=== PATIENT | female | born 1995 | race Caucasian/White ===

== ENCOUNTER 2021-11-16 15:32 | Emergency (ER) | payer OTHER, SELFPAY ==
--- NOTE | ~2021-11-16 | CT_ITS ---
EXAMINATION: CT abdomen pelvis wo con DATE: 11/16/2021 18:37 INDICATION: Right flank pain radiating to right lower quadrant. Nausea. TECHNIQUE: Computed tomography (CT) of the abdomen and pelvis was performed without intravenous contr ast. Automated exposure control and iterative reconstruction technique were employed. Exam dose: 587 .97 mGy-cm total exam DLP. COMPARISON: None. FINDINGS: The lung bases are clear. Normal heart size. No pericardial or pleural effusion. The liver, gallbladder, bile ducts, spleen, pancreas, pancreatic duct and adrenal glands are unremark able. There is an approximately 2.5 mm proximal right ureteral calculus with minimal right hydronephrosis. No other urinary tract calculus. The uterus, adnexal areas and urinary bladder are unremarkable. Normal appendix. There is diverticulosis of left colon; no evidence of diverticulitis. No bowel obstruction, bowel wal l thickening, pneumatosis or intraperitoneal free air. Normal caliber of the abdominal aorta. No intraperitoneal or retroperitoneal or pelvic mass lesion or adenopathy or ascites. Included skeletal structures are unremarkable. IMPRESSION: 2.5 mm proximal right ureteral calculus with minimal right hydroureteronephrosis Diverticulosis of left colon; no evidence of diverticulitis Reviewed, dictated and finalized at [facility]. Reviewed, dictated and finalized at [facility]. IMPRESSION: 2.5 mm proximal right ureteral calculus with minimal right hydrour eteronephrosis Diverticulosis of left colon; no evidence of diverticulitis
[2021-11-16 15:39] VITALS: BP 128/81; PULSE 104; RESP 18; TEMP 36.4; O2SAT 100
[2021-11-16 16:22] LABS: Add Urine Microscopic? YES; Appearance Urine Cloudy (Clear); Basophils Percent Auto 0.4 % (0.2-1.2); Bilirubin Urine 1+ (Negative); Blood Urine 3+ (Negative); Color Urine Brown (Yellow); Eosinophils Absolute Auto 0.2 K/mm3 (0-0.3); Eosinophils Percent Auto 2.2 % (0-4.4); Glucose Urine UA Negative (Negative); Hematocrit 39.9 % (37.0-47.0); Hemoglobin 13.5 g/dL (12.0-15.0); Immature Granulocyte Absolute 0.04 K/mm3 (0.00-0.031); Immature Granulocyte Percent A 0.4 % (0-0.5); Ketones Urine Trace mg/dL (Negative); Leukocyte Esterase Ur Trace LEU/UL (Negative); Lymphocytes Absolute Auto 3.05 K/mm3 (0.9-3.2); Lymphocytes Percent Auto 31.1 % (18.3-44.2); Mean Corpuscular HGB Conc 33.8 g/dl (32-36); Mean Corpuscular Hemoglobin 30.3 pg (26-34); Mean Corpuscular Volume 89.7 fl (80-100); Mean Platelet Volume 9.7 fl (7.4-10.4); Monocytes Absolute Auto 0.7 K/mm3 (0.1-0.6); Monocytes Percent Auto 7.1 % (2.6-8.5); Neutrophils Absolute Auto 5.8 K/mm3 (1.3-6.7); Neutrophils Percent Auto 58.8 % (45.5-73.1); Nitrate Urine Negative (Negative); Platelet Count Result 398 k/mm3 (150-375); Protein Urine 2+ mg/dL (Negative); Red Blood Count 4.45 M/mm3 (4.2-5.4); Red Cell Distribution Width 12.9 % (11.5-14.5); Specific Grav Ur 1.025 (1.001-1.035); Urobilinogen Urine 0.2 mg/dL (<2.0); White Blood Count 9.8 K/mm3 (4.5-10.0); pH Urine 6.5 (5.0-9.0)
[2021-11-16 16:26] LABS: Mucus Urine Rare /lpf; RBC Urine >75 /hpf (0-2); Squamous Epithelial Cell Urine Few /hpf (Few); WBC Urine 0-3 /hpf
[2021-11-16 16:38] LABS: Alanine Aminotransferase 17 U/L (6-35); Albumin Level 4.9 g/dL (3.5-5.1); Alkaline Phosphatase 73 U/L (38-126); Anion Gap 8 mmol/L (8-16); Aspartate Amino Transferase 25 U/L (14-36); Bilirubin,Total 0.3 mg/dL (0.2-1.3); Blood Urea Nitrogen 13 mg/dL (7-17); Calcium 9.3 mg/dL (8.4-10.2); Carbon Dioxide 28 mmol/L (22-30); Chloride 105 mmol/L (98-107); Estimated CRCL calculation 109 ml/min; Estimated Glomerular Filt Rate > 60; Glucose 90 mg/dL (65-110); Lipase 133 U/L (23-300); Potassium 4.3 mmol/L (3.4-5.0); Sodium 141 mmol/L (137-145)
[2021-11-16 18:14] VITALS: BP 126/92; PULSE 75; RESP 14; O2SAT 100
--- NOTE | 2021-11-16 18:27 | ED.ABDPAIN ---
HPI - Abdominal Pain General Chief Complaint: Abdominal Pain Stated Complaint: R lower back pain to abd Time Seen by Provider: 11/16/21 18:05 History of Present Illness HPI narrative: Pt presents with right flank pain onset about 1430 today. Pt described as sharp and radiating around to front of abdoment. Pt says constant but waxes and wanes in severity. Pt a little nauseated but not vomiting. Pt noticed urine was dark. Related Data Allergies Allergy/AdvReac Type Severity Reaction Status Date / Time No Known Allergies Allergy Verified 11/16/21 18:59 Review of Systems Review of Systems: All systems reviewed & are unremarkable except as noted in HPI and below PMFSH Family History Family History (Updated 01/06/16 @ 23:21 by DOCTOR UNKNOWN) Mother Hypertension Patient's mother is in good health Father Patient's father is in good health Sibling Patient's sister is in good health Patient's brother is in good health Family history of development disorder Grandparent Family history of alcoholism Family history of lung cancer Other Family history of migraine headaches Exam Const: General: healthy appearing Nutritional Appearance: well nourished Orientation/consciousness: patient oriented x3 Limitations: no limitations Resp: Effort & Inspection: normal respiratory effort Auscultation: clear to auscultation bilaterally Cardio: Rate: regular rate Rhythm: regular rhythm Heart sounds: Murmur heart sound present GI: GI Palp: Yes Soft to palpation Auscultation: normal bowel sounds : General: Yes CVA tenderness (right) Back/Spine/Pelvis: Back: CVA tenderness Skin: General skin exam: normal color Rashes: no rashes Neuro: General: patient oriented x3, moves all extremities and no focal motor deficits Extrem: General: normal to inspection and no clubbing, cyanosis or edema Psych: Mental Status: mental status grossly normal Affect: normal affect Attitude: cooperative Course Vital Signs Vital signs: Vital Signs Temperature 97.6 F 11/16/21 15:39 Pulse Rate 104 H 11/16/21 15:39 Respiratory Rate 18 11/16/21 15:39 Blood Pressure 128/81 11/16/21 15:39 Pulse Oximetry 100 11/16/21 15:39 Oxygen Delivery Room Air 11/16/21 15:39 Temperature 97.6 F 11/16/21 15:39 Pulse Rate 90 11/16/21 19:39 Respiratory Rate 18 11/16/21 19:39 Blood Pressure 137/100 H 11/16/21 19:39 Pulse Oximetry 100 11/16/21 19:39 Oxygen Delivery Room Air 11/16/21 15:39 MDM - Abdominal Pain Lab Data Result diagrams: 11/16/21 16:13 11/16/21 16:14 Labs: Lab Results 11/16/21 11/16/21 11/16/21 Range/Units 16:13 16:13 16:14 WBC 9.8 (4.5-10.0) K/mm3 RBC 4.45 (4.2-5.4) M/mm3 Hgb 13.5 (12.0-15.0) g/dL Hct 39.9 (37.0-47.0) % MCV 89.7 (80-100) fl MCH 30.3 (26-34) pg MCHC 33.8 (32-36) g/dl RDW 12.9 (11.5-14.5) % Plt Count 398 H (150-375) k/mm3 MPV 9.7 (7.4-10.4) fl Immature Gran % (Auto) 0.4 (0-0.5) % Neut % (Auto) 58.8 (45.5-73.1) % Lymph % (Auto) 31.1 (18.3-44.2) % [place] % (Auto) 7.1 (2.6-8.5) % Eos % (Auto) 2.2 (0-4.4) % Baso % (Auto) 0.4 (0.2-1.2) % Lymph # (Auto) 3.05 (0.9-3.2) K/mm3 [place] # (Auto) 0.7 H (0.1-0.6) K/mm3 Eos # (Auto) 0.2 (0-0.3) K/mm3 Baso # (Auto) 0.0 (0.0-0.1) K/mm3 Abs Immat Gran (auto) 0.04 H (0.00-0.031) K/mm3 Absolute Neuts (auto) 5.8 (1.3-6.7) K/mm3 Absolute Nucleated RBC 0.0 (0.0-0.012) K/mm3 Nucleated RBC % 0.0 (0.0-0.2) % Sodium 141 (137-145) mmol/L Potassium 4.3 (3.4-5.0) mmol/L Chloride 105 (98-107) mmol/L Carbon Dioxide 28 (22-30) mmol/L Anion Gap 8 (8-16) mmol/L BUN 13 (7-17) mg/dL Creatinine 0.70 (0.7-1.0) mg/dL Estim Creat Clear Calc 109 ml/min Estimated GFR > 60 (59 - ) Glucose 90 (65-110) mg/dL Calcium 9.3 (8.4-10.2) mg/dL Total Bilirubin
[2021-11-16] MEDS: ONDANSETRON INJ 4 MG/2 ML VIAL IV PUSH (19:08)
[2021-11-16] MEDS: fentaNYL CITRATE INJ (*CRX) 100 MCG/2 ML VIAL 50 MCG IV PUSH (19:09)
[2021-11-16 19:10] VITALS: BP 134/101; PULSE 98; RESP 14; O2SAT 98
[2021-11-16 19:39] VITALS: BP 137/100; PULSE 90; RESP 18; O2SAT 100
== END 2021-11-16 19:34 | disposition home or self-care (01) ==
PROVIDERS: Emergency Medicine; Emergency Provider Emergency Medicine
DX: N20.1 Calculus of ureter (principal)
CPT/HCPCS: 36415; 74176; 80053; 81001; 81025; 83690; 85025; 99284; J2405; J3010

== ENCOUNTER 2021-12-04 07:03 | Emergency (ER) | payer OTHER, SELFPAY ==
--- NOTE | ~2021-12-04 | CT_ITS ---
EXAMINATION: CT abdomen pelvis wo con DATE: 12/04/2021 08:22 INDICATION: Right flank pain. History of kidney stone. TECHNIQUE: Computed tomography (CT) of the abdomen and pelvis was performed without intravenous contr ast. Automated exposure control and iterative reconstruction technique were employed. Exam dose: 483 .90 mGy-cm total exam DLP. COMPARISON: 11/16/2021 CT abdomen pelvis FINDINGS: The lung bases are clear of infiltrate or consolidation. Normal heart size. No pericardial or pleural effusion. The liver, gallbladder, bile ducts, spleen, pancreas, pancreatic duct, adrenal glands and left kidney are unremarkable. There is right nephromegaly and moderate right hydroureteronephrosis due to a very distal right urete ral 3 mm calculus. No other urinary tract calculus. Normal caliber of the abdominal aorta. No intraperitoneal or retroperitoneal or pelvic mass lesion or adenopathy or ascites. Normal appendix. There is diverticulosis of the left colon; no CT evidence of diverticulitis. No romi l obstruction or intraperitoneal free air. The urinary bladder, uterus and adnexal areas are unremarkable. Included skeletal structures are unremarkable. IMPRESSION: 3 mm obstructing distal right ureteral calculus with moderate right hydroureteronephrosi s, right nephromegaly Normal appendix Reviewed, dictated and finalized at [facility]. Reviewed, dictated and finalized at [facility]. IMPRESSION: 3 mm obstructing distal right ureteral calculus with moderate righ t hydroureteronephrosis, right nephromegaly Normal appendix
[2021-12-04 07:10] VITALS: BP 151/85; PULSE 108; RESP 20; TEMP 36.6; O2SAT 97
[2021-12-04 07:37] LABS: Appearance Urine Cloudy (Clear); Bilirubin Urine Negative (Negative); Blood Urine 1+ (Negative); Color Urine Yellow (Yellow); Glucose Urine UA Negative (Negative); Ketones Urine Trace mg/dL (Negative); Leukocyte Esterase Ur Negative LEU/UL (Negative); Nitrate Urine Negative (Negative); Protein Urine Negative (Negative); Specific Grav Ur >= 1.030 (1.001-1.035); Urobilinogen Urine 0.2 mg/dL (<2.0); pH Urine 5.5 (5.0-9.0)
[2021-12-04 07:44] LABS: Bacteria Urine Trace /hpf; Mucus Urine Rare /lpf; Squamous Epithelial Cell Urine Many /hpf (Few); WBC Urine 0-3 /hpf
[2021-12-04 07:44] LABS: Basophils Absolute Auto 0.1 K/mm3 (0.0-0.1); Basophils Percent Auto 0.3 % (0.2-1.2); Eosinophils Absolute Auto 0.1 K/mm3 (0-0.3); Eosinophils Percent Auto 0.8 % (0-4.4); Hematocrit 38.7 % (37.0-47.0); Hemoglobin 13.1 g/dL (12.0-15.0); Immature Granulocyte Absolute 0.08 K/mm3 (0.00-0.031); Immature Granulocyte Percent A 0.5 % (0-0.5); Lymphocytes Absolute Auto 1.96 K/mm3 (0.9-3.2); Lymphocytes Percent Auto 12.5 % (18.3-44.2); Mean Corpuscular HGB Conc 33.9 g/dl (32-36); Mean Corpuscular Hemoglobin 29.9 pg (26-34); Mean Corpuscular Volume 88.4 fl (80-100); Mean Platelet Volume 10.2 fl (7.4-10.4); Monocytes Absolute Auto 0.8 K/mm3 (0.1-0.6); Monocytes Percent Auto 5.1 % (2.6-8.5); Neutrophils Absolute Auto 12.6 K/mm3 (1.3-6.7); Neutrophils Percent Auto 80.8 % (45.5-73.1); Platelet Count Result 292 k/mm3 (150-375); Red Blood Count 4.38 M/mm3 (4.2-5.4); Red Cell Distribution Width 12.2 % (11.5-14.5); White Blood Count 15.6 K/mm3 (4.5-10.0)
[2021-12-04 07:46] LABS: Add Urine Microscopic? YES
[2021-12-04 07:52] LABS: Alanine Aminotransferase 15 U/L (6-35); Albumin Level 4.4 g/dL (3.5-5.1); Alkaline Phosphatase 73 U/L (38-126); Anion Gap 9 mmol/L (8-16); Aspartate Amino Transferase 23 U/L (14-36); Bilirubin,Total 0.6 mg/dL (0.2-1.3); Blood Urea Nitrogen 12 mg/dL (7-17); Calcium 8.8 mg/dL (8.4-10.2); Carbon Dioxide 26 mmol/L (22-30); Chloride 102 mmol/L (98-107); Estimated CRCL calculation 80 ml/min; Estimated Glomerular Filt Rate > 60; Glucose 103 mg/dL (65-110); Potassium 3.9 mmol/L (3.4-5.0); Sodium 137 mmol/L (137-145)
[2021-12-04] MEDS: MORPHINE SULFATE (*CRX) 4 MG/ML INJ IV PUSH (08:01)
[2021-12-04] MEDS: SODIUM CHLORIDE 0.9% IV 1,000 ML 999 ML IV CONT (08:02)
[2021-12-04] MEDS: ONDANSETRON INJ 4 MG/2 ML VIAL IV PUSH (08:02)
--- NOTE | 2021-12-04 08:12 | ED.GENADULT ---
HPI - General Adult General Chief complaint: Urogenital-Female Stated complaint: Right flank pain Time Seen by Provider: 12/04/21 07:06 History of Present Illness HPI narrative: Patient is a 25-year-old female who presents ER with right-sided flank pain. Ongoing for 2 days but worsened this morning. No improvement with [place]. No fevers or chills or sweats. Reports decreased urination. No dysuria. Has a known kidney stone but has never passed it. No aggravating factors. Pain is without radiation. Patient had kidney stone diagnosed earlier in the month. Related Data Allergies Allergy/AdvReac Type Severity Reaction Status Date / Time No Known Allergies Allergy Verified 12/04/21 07:12 Review of Systems Review of Systems: All systems reviewed & are unremarkable except as noted in HPI and below Constitutional: Constitutional: Denies fever(s) and Denies weakness Cardiovascular: Cardiovascular: Denies chest pain and Denies rapid heart rate Respiratory: Respiratory: Denies cough and Denies dyspnea Gastrointestinal: Gastrointestinal: Denies abdominal pain, Reports nausea and Denies vomiting Genitourinary: Genitourinary: Denies hematuria, Denies dysuria and Reports flank pain PMFSH Family History Family History (Updated 01/06/16 @ 23:21 by DOCTOR UNKNOWN) Mother Hypertension Patient's mother is in good health Father Patient's father is in good health Sibling Patient's sister is in good health Patient's brother is in good health Family history of development disorder Grandparent Family history of alcoholism Family history of lung cancer Other Family history of migraine headaches Exam Narrative: GENERAL: Uncomfortable-appearing, well-nourished, and in mild distress. HEAD: Normocephalic, atraumatic. CHEST: Clear to auscultation. No respiratory distress. HEART: Regular rate and rhythm. Normal peripheral pulses. ABDOMEN: Soft, nontender, nondistended. EXTREMITIES: Normal range of motion. No edema. SKIN: Warm, dry, no rash. NEURO: Alert and oriented x3. PSYCH: Normal mood and affect. Course Course Emergency Course: Patient feeling much better after Toradol. Informed results. Discharge home with supportive medications. Vital Signs Vital signs: Vital Signs Temperature 97.9 F 12/04/21 07:10 Pulse Rate 108 H 12/04/21 07:10 Respiratory Rate 20 12/04/21 07:10 Blood Pressure 151/85 H 12/04/21 07:10 Pulse Oximetry 97 12/04/21 07:10 Oxygen Delivery Room Air 12/04/21 07:10 Temperature 97.9 F 12/04/21 07:10 Pulse Rate 108 H 12/04/21 07:10 Respiratory Rate 20 12/04/21 07:10 Blood Pressure 151/85 H 12/04/21 07:10 Pulse Oximetry 97 12/04/21 07:10 Oxygen Delivery Room Air 12/04/21 07:10 Medical Decision Making Vital Signs Vital Signs: Vital Signs Temperature 97.9 F 12/04/21 07:10 Pulse Rate 108 H 12/04/21 07:10 Respiratory Rate 20 12/04/21 07:10 Blood Pressure 151/85 H 12/04/21 07:10 Pulse Oximetry 97 12/04/21 07:10 Oxygen Delivery Room Air 12/04/21 07:10 Temperature 97.9 F 12/04/21 07:10 Pulse Rate 108 H 12/04/21 07:10 Respiratory Rate 20 12/04/21 07:10 Blood Pressure 151/85 H 12/04/21 07:10 Pulse Oximetry 97 12/04/21 07:10 Oxygen Delivery Room Air 12/04/21 07:10 Lab Data Result diagrams: 12/04/21 07:26 12/04/21 07:26 Labs: Lab Results 12/04/21 12/04/21 12/04/21 Range/Units 07:26 07:26 07:30 WBC 15.6 H (4.5-10.0) K/mm3 RBC 4.38 (4.2-5.4) M/mm3 Hgb 13.1 (12.0-15.0) g/dL Hct 38.7 (37.0-47.0) % MCV 88.4 (80-100) fl MCH 29.9 (26-34) pg MCHC 33.9 (32-36) g/dl RDW 12.2 (11.5-14.5) % Plt Count 292 (150-375) k/mm3 MPV 10.2 (7.4-10.4) fl Immature Gran % (Auto) 0.5 (0-0.5) % Neut % (Auto) 80.8 H (45.5-73.1) % Lymph % (Auto) 12.5 L (18.3-44.2) % [place] % (Auto) 5.1 (2.6-8.5) % Eos % (Auto) 0.8 (0-4.4)
[2021-12-04] MEDS: KETOROLAC 30 MG/ML VIAL (*BKC) IV PUSH (08:58)
== END 2021-12-04 10:50 | disposition home or self-care (01) ==
PROVIDERS: Emergency Provider Emergency Medicine
DX: N13.2 Hydronephrosis with renal and ureteral calculous obstruction (principal)
CPT/HCPCS: 36415; 74176; 80053; 81001; 81025; 85025; 96361; 96374; 96375; 99284; J1885; J2270; J2405; J7030

== ENCOUNTER → 2022-07-17 14:26 | Outpatient (CLI) | payer OTHER, SELFPAY ==
--- NOTE | ~2022-07-17 | MR_ITS ---
EXAMINATION: MR knee RT wo con DATE: 07/17/2022 15:07 INDICATION: Internal derangement of the right knee with persistent right knee pain 3 weeks post skiin g injury TECHNIQUE: Magnetic resonance imaging (MRI) of the right knee was performed without intravenous contr ast. Sequences included coronal PD-weighted FSE, coronal PD-weighted FS FSE, sagittal T2-weighted FS E, sagittal PD-weighted FS FSE and axial PD weighted fat saturated FSE. COMPARISON: None. FINDINGS: Medial compartment: Medial meniscus is normal. Articular cartilage is normal. Lateral compartment: Lateral meniscus is normal. Articular cartilage is normal. Patellofemoral compartment: Articular cartilage is normal. Ligaments and tendons: Anterior and posterior cruciate ligaments are normal. The medial collateral ligament and fibular yulissa ateral ligament complex are normal. The extensor mechanism is normal. The visualized medial and later al hamstring tendons as well as the iliotibial band are normal. Fluid: Physiologic amount of fluid in the joint space. No loose osteochondral bodies identified. Osseous/other: There is marrow edema surrounding a nondisplaced horizontal low signal intensity impaction fracture l ine underlying the posterolateral aspect of the lateral tibial plateau with no evident extension to t he articular cortex. The region of the fracture is also adjacent to the cephalad portion of the artic ular surface at the proximal tibiofibular joint with subtle linear fluid signal intensity fracture li ne extending across the lateral sided cortex of the lateral tibial plateau near the anterosuperior ma rgin of the proximal tibiofibular joint. Otherwise normal marrow signal throughout. No other fracture s or pathologic marrow replacing process. IMPRESSION: 1. Nondisplaced likely impaction fracture which does not appear to involve the articular cortex at th e posterolateral aspect of the lateral tibial plateau. 2. No internal derangement with normal menisci, cartilage and stabilizing ligaments. Reviewed, dictated and finalized at [facility]. AND SCIENTIST IMPRESSION: 1. Nondisplaced likely impaction fracture which does not appear to involve the articular cortex at the posterolateral aspect of the lateral tibial plateau. 2. No internal derangement with normal menisci, cartilage and stabilizing ligam ents.
== END ==
PROVIDERS: PCP Family Medicine Sports Medicine; Visit Provider Family Medicine Sports Medicine
DX: M23.91 Unspecified internal derangement of right knee (principal)
CPT/HCPCS: 73721